=== PATIENT | male | born 1995 | race Caucasian/White ===

== ENCOUNTER 2020-01-02 21:22 | Emergency (ER) | payer OTHER ==
[~2020-01-02] VITALS: Ht 177.8 cm; Wt 68.0 kg
--- NOTE | 2020-01-02 21:33 | NUR ---
BIBRA 860 from home c/o left flank pain and right testicular pain. Seen at [place] for stone. Per pt "it was a small one, but it feels big" pt placed in bed 9 on monitor and pulse ox. vss. No acute distress noted. Took [place] unknown dose 45 mins ago.
--- NOTE | 2020-01-02 21:37 | NUR ---
urine sent to lab
[2020-01-02] MEDS ORDERED: ONDANSETRON HCL/PF 4 MG/2 ML VIAL ONE (21:57)
[2020-01-02] MEDS ORDERED: MORPHINE SULFATE INJ 4 MG/ML DISP.SYRIN ONE (21:57)
[2020-01-02 21:58] LABS: BASOPHILS # (AUTO) 0.1 /CMM (0.0-0.2); BASOPHILS % (AUTO) 0.6 % (0.0-2.0); EOSINOPHILS % (AUTO) 0.4 % (0.0-6.0); HEMATOCRIT 43 % (39-51); HEMOGLOBIN 14.4 g/dL (13.5-17.5); LYMPHOCYTES # (AUTO) 1.1 /CMM (0.8-4.8); LYMPHOCYTES % (AUTO) 8.4 % (20.0-44.0); MEAN CORPUSCULAR HGB CONC 33 g/dl (31.0-36.0); MEAN CORPUSCULAR VOLUME 92 fL (80-96); MONOCYTES # (AUTO) 1.2 /CMM (0.1-1.30); NEUTROPHILS # (AUTO) 10.9 /CMM (1.8-8.9); NEUTROPHILS % (AUTO) 81.6 % (43.0-81.0); PLATELET COUNT (AUTO) 221 /CMM (150-450); RED BLOOD CELL COUNT(AUTO) 4.68 MIL/uL (4.5-6.0); WHITE BLOOD COUNT (AUTO) 13.3 K/uL (4.3-11.0)
[2020-01-02] MEDS ORDERED: MORPHINE SULFATE INJ 2 MG/ML DISP.SYRIN IV ONE (22:00)
[2020-01-02] MEDS ORDERED: IV NS 0.9% 1,000 ML BAG IV ONE (22:00)
[2020-01-02] MEDS ORDERED: ONDANSETRON HCL/PF 4 MG/2 ML VIAL IVP ONE (22:00)
[2020-01-02 22:06] LABS: CALCIUM, SERUM 9.1 mg/dL (8.5-10.1); CREATININE 1.3 mg/dL (0.6-1.3); POTASSIUM 3.3 mmol/L (3.5-5.1)
[2020-01-02 22:15] LABS: APPEARANCE,URINE Clear (CLEAR); BILIRUBIN,URINE Negative (NEGATIVE); BLOOD, URINE Trace-intact Ery/uL (NEGATIVE); COLOR,URINE Yellow (YELLOW); KETONES,URINE 15 (NEGATIVE); LEUKOCYTE ESTERASE ,URINE Negative (NEGATIVE); NITRITE, URINE Negative (NEGATIVE); PH,URINE 6.5 (5.0-8.0); PROTEIN,URINE Negative (NEGATIVE); UGLUCOSE Negative (NEGATIVE); UROBILINOGEN,URINE 0.2 EU/dL (0.2)
--- NOTE | 2020-01-02 22:22 | NUR ---
UPDATED MOTHER PLAN OF CARE.
--- NOTE | 2020-01-02 22:42 | NUR ---
CALLED REGARDING US, WAS TOLD US IS HERE.
--- NOTE | 2020-01-02 22:44 | NUR ---
US AT BEDSIDE
[2020-01-02 23:12] LABS: BACTERIA,URINE Rare /HPF (None Seen); SQUAMOUS EPITHELIAL CELL,UR Rare /HPF (None Seen); WBC,URINE 0-2 /HPF (0-3)
--- NOTE | 2020-01-02 23:28 | NUR ---
[facility] SPEAKING TO MOTHER OF PT.
[2020-01-02] MEDS ORDERED: LIDOCAINE /MPF 1% VIAL 5 ML VIAL ONE (23:43)
[2020-01-02] MEDS ORDERED: CEFTRIAXONE 500 MG VIAL ONE (23:43)
[2020-01-02] MEDS ORDERED: SULFAMETH/TRIMETH 800/160 MG 1 UDTAB TABLET ONE (23:44)
[2020-01-02] MEDS ORDERED: AZITHROMYCIN 250 MG TABLET ONE (23:44)
[2020-01-03] MEDS ORDERED: AZITHROMYCIN 250 MG TABLET PO ONE
[2020-01-03] MEDS ORDERED: CEFTRIAXONE 500 MG VIAL IM ONE
[2020-01-03] MEDS ORDERED: SULFAMETH/TRIMETH 800/160 MG 1 UDTAB TABLET PO ONE
[2020-01-03 00:08] VITALS: BP 124/73
--- NOTE | 2020-01-03 00:08 | NUR ---
Patient discharged to home in stable condition. Written and verbal after care instructions given. Patient verbalizes understanding of instruction and RX. IV removed. Catheter intact and site benign. Pressure and 4x4 applied to site. No bleeding noted. Pt ambulated with steady gait.vss.
== END 2020-01-03 00:09 | disposition home or self-care (01) ==
LOC: ER 21:25
DX: N45.1 Epididymitis (principal); N43.2 Other hydrocele
CPT/HCPCS: 36415; 76870; 80048; 81001; 85025; 96361; 96372; 96374; 96375; 99285; J0696; J2270; J2405; J3490; 81000-TC